=== PATIENT | male | born 1975 | race Caucasian/White ===

== ENCOUNTER 2021-01-22 11:03 | Emergency (ER) | payer BC, SELFPAY ==
--- NOTE | ~2021-01-22 | XR_ITS ---
EXAMINATION: XR KNEE, LEFT CLINICAL INFORMATION: Pain following fall. COMPARISON: None TECHNIQUE: Four views of the left knee. FINDINGS: No acute fracture or dislocation. No significant joint space narrowing or marginal osteophytes. No osseous erosion. No abnormal soft tissue calcification. No significant joint effusion. XR/XR knee LT 2V IMPRESSION: Unremarkable examination.
--- NOTE | ~2021-01-22 | US_ITS ---
EXAMINATION: US VENOUS ULTRASOUND WITH DOPPLER LOWER EXTREMITY, LEFT CLINICAL INFORMATION: Left leg pain. Evaluate for deep vein thrombosis. COMPARISON: None TECHNIQUE: Ultrasound of the deep veins is performed from the hip to the calf with compression sonography and color and pulse Doppler assessment. Spectral analysis with color-flow imaging is performed. FINDINGS: There is normal venous compression and respiratory variation and augmented flow. The visualized common femoral vein, superficial femoral vein, profunda femoral vein, popliteal vein, and the trifurcation region shows no evidence of deep venous thrombosis. There is no significant popliteal fossa cyst. If the patient's symptoms persist, followup ultrasound in 5 days 7 days might be of value to exclude proximal propagation from a non-visualized calf vein. US/US venous duplex LE LT IMPRESSION: No DVT demonstrated in the left lower extremity.
[2021-01-22 11:21] VITALS: BP 145/96; PULSE 79; RESP 18; TEMP 36.8; O2SAT 98; BMI 47.4
--- NOTE | 2021-01-22 14:03 | ED.GENADULT ---
HPI - General Adult General Chief complaint: General Medical Stated complaint: leg swelling Time Seen by Provider: 01/22/21 12:32 Source: patient History of Present Illness HPI narrative: This is a 45 year old male who complains of pain to his left medial leg and prominence of the vein from the medial knee down to the medial ankle. The patient has noticed this for about a week. He has had some pain to that area but denies any generalized calf pain. Denies any chest pain or shortness of breath. Patient notes that he has had some pain in both of his knees as well off and on and has had prior surgery on his right knee. He had a fall yesterday at work and has some pain to his left inferior knee after this fall. He notes that he is overweight and attributes his knee problems to being overweight. Related Data Allergies Allergy/AdvReac Type Severity Reaction Status Date / Time No Known Allergies Allergy Verified 01/22/21 11:21 [No Known Allergies*] Review of Systems Constitutional: Constitutional: Reports as per HPI Cardiovascular: Cardiovascular: Reports no additional cardiovascular complaints, Denies chest pain and Denies dyspnea Respiratory: Respiratory: Denies dyspnea Gastrointestinal: Gastrointestinal: Reports no additional gastrointestinal complaints Neurologic: Denies Sensory deficit (Neuro) [facility] Past Medical History Medical History (Updated 01/22/21 @ 14:13 by Bennett Hawk MD) Arthritis Lower extremity surgery planned Obesity Social History Social History Alcohol intake: current Alcohol intake frequency: 3 or more drinks per day Patient Tobacco Use Status: Current everyday Tobacco user Use of substances other than those prescribed or required for medical reasons: Yes Substance Use Type: Marijuana Substance Use Frequency: Daily Advance Directives: Yes Advance Directives Information Provided: Yes Advance Directives on File: No Physical Exam Vital Signs: Vital Signs: Last Vital Signs Temp 98.2 F 01/22/21 11:21 Pulse 79 01/22/21 11:21 Resp 18 01/22/21 11:21 BP 145/96 H 01/22/21 11:21 Pulse Ox 98 01/22/21 11:21 Body Mass Index 47.4 Const: General: cooperative, no acute distress and alert Orientation/consciousness: patient oriented x3 HENMT: Head: Yes normal to inspection Eyes: General: appearance normal, both eyes and all related structures Eyelids: Yes eyelids normal Conjunctivae: conjunctivae normal Pupils: Equal, round and reactive pupils present Neck: Neck: Yes normal visual inspection and Yes supple Chest: Chest palpation & inspection: normal inspection of the chest Resp: Effort & Inspection: normal respiratory effort Auscultation: clear to auscultation bilaterally Cardio: Rate: regular rate Rhythm: regular rhythm Heart sounds: S1 normal heart sound present, S2 normal heart sound present, no gallops, no murmurs and no rubs GI: Palpation (GI): Soft to palpation, nontender and Other GI palpation findings present (Non-distended) Auscultation: normal bowel sounds Skin: General skin exam: no rashes or lesions noted Neuro: General: patient oriented x3, no focal motor deficits and CN's II-XI intact bilaterally Cranial nerves: Yes Equal, round and reactive pupils present Cognition (Neuro): normal cognition Motor exam (neuro): 5/5 motor strength present throughout Sensory Exam: No Sensory deficit (Neuro) Extrem: Other: Left leg with no calf tenderness. Slight prominence to a few external veins but no erythema. Borderline mild pedal edema. Left knee with tenderness to the inferior aspect, no effusion or ecchymosis General: Yes normal to inspection and Yes no pedal edema Psych: Appearance: grossly normal Affect: normal affect Medical Decision Making MDM Narrative Medical decision making narrative: Patient with chronic knee pain, had a fall yesterday and complained of worsened knee pain. Examination benign. X-ray negative. Patient also complained of prominence to the veins of his left leg for about a week with pain along the medial aspect of the leg mild pedal edema. Exam not impressive but felt a worthwhile to rule out DVT. Ultrasound was negative. Imaging Data Left leg ultrasound venous: Radiologist's impression: IMPRESSION: No DVT demonstrated in the left lower extremity. Discharge Plan Discharge Clinical Impression: Acute pain of left knee, Varicose veins of left lower extremity Patient Disposition: Home, Self-Care Instructions: Knee Pain (ED) Additional Instructions: Use ibuprofen for pain. Follow-up with your orthopedic doctor she have persistent pain in your knee or knees. Return for any new or worsened symptoms such as increased leg pain or swelling
[2021-01-22 14:33] VITALS: BP 136/96; PULSE 77; RESP 16; O2SAT 96
== END 2021-01-22 14:40 | disposition home or self-care (01) ==
PROVIDERS: Emergency Provider Emergency Medicine
DX: I83.892 Varicose veins of left lower extremity with other complications (principal); M25.562 Pain in left knee; R22.42 Localized swelling, mass and lump, left lower limb; E66.9 Obesity, unspecified; F17.210 Nicotine dependence, cigarettes, uncomplicated; F12.90 Cannabis use, unspecified, uncomplicated
CPT/HCPCS: 73560; 93971; 99284

== ENCOUNTER 2021-09-29 11:13 | Emergency (ER) | payer OTHER, SELFPAY ==
--- NOTE | ~2021-09-29 | XR_ITS ---
EXAMINATION: XR CHEST CLINICAL INFORMATION: Rule out pneumonia COMPARISON: None TECHNIQUE: Frontal view of the chest was obtained. FINDINGS: Cardiac silhouette is normal in size. The lungs are well aerated. There is no lobar consolidation. No pleural effusion or pneumothorax. No gross osseous abnormality. XR/XR chest 1V IMPRESSION: No acute pulmonary pathology.
[2021-09-29 11:43] VITALS: BP 122/78; PULSE 86; RESP 19; TEMP 36.8; O2SAT 96; BMI 48.6
--- NOTE | 2021-09-29 12:06 | ED_ITS ---
HPI - URI/Sore Throat General Chief Complaint: Upper Respiratory Symptoms Stated Complaint: sinsus headache cough Time Seen by Provider: 09/29/21 11:58 Source: patient Mode of arrival: ambulatory Limitations: no limitations History of Present Illness HPI Narrative: Patient comes to the emergency room complaining of cough, congestion, sinus pressure for about 3 days now. Patient states that his daughter had similar symptoms. Patient denies fever, however he has been taking Tylenol and ibuprofen around the clock. Patient states that he found old albuterol comes from a family member and he has been treating himself with albuterol and ?some steroid? Related Data Previous Rx's Medication Instructions Recorded fexofenadine 180 mg tablet 180 mg PO DAILY #7 tab 09/29/21 ([facility]) fluticasone propionate 50 2 spray INTRANASAL DAILY #16 g 09/29/21 mcg/actuation nasal spray,suspension (24 Hour Allergy Relief) Allergies Allergy/AdvReac Type Severity Reaction Status Date / Time No Known Allergies Allergy Verified 09/29/21 11:43 [No Known Allergies*] Review of Systems Review of Systems: Constitutional : No Weight loss, No Fever, No Chills, No Night Sweats, No Fatigue, No Malaise ENT/Mouth : No Hearing loss, No Ear Pain, complaining of nasal congestion, sinus pain Eyes: No Eye Pain, No Swelling, No Redness, No Foreign Body, No Discharge, No Vision Changes Cardiovascular : No Chest Pain, No SOB, No Dyspnea on Exertion, No Orthopnea, No Edema, No Palpitations Respiratory : Complaining of productive cough, No Wheezing, No Smoke Exposure, No Dyspnea Gastrointestinal : No Nausea, No Vomiting, No Diarrhea, No Constipation, No abdominal Pain, No Hematochezia, No Melena Genitourinary : no irregular bleeding, No Dysuria, No Urinary Frequency, No Hematuria, No Urinary Incontinence, No Urgency, No Flank Pain, No Urinary Flow Changes, No Hesitancy Musculoskeletal : No joint pain, No Myalgias, No Joint Swelling Skin : No Skin Lesions, No rash Neuro : No Weakness, No Numbness, No Paresthesias, No Loss of Consciousness, No Dizziness, No Headache Psych : No Anxiety/Panic, No Depression, No SI/HI/AH/VH, No Social Issues, Heme/Lymph: No Bruising, No Bleeding,No Lymphadenopathy Endocrine : No Polyuria, No Polydipsia, No Temperature Intolerance [facility] Past Medical History Medical History Arthritis Lower extremity surgery planned Obesity Social History Social History Alcohol intake: current Alcohol intake frequency: 3 or more drinks per day Patient Tobacco Use Status: Current everyday Tobacco user Substance Use Type: Marijuana Advance Directives: No Advance Directives Information Provided: No Physical Exam Vital Signs: Vital Signs: Last Vital Signs Temp 98.2 F 09/29/21 11:43 Pulse 86 09/29/21 11:43 Resp 19 09/29/21 11:43 BP 122/78 09/29/21 11:43 Pulse Ox 96 09/29/21 11:43 BMI result Body Mass Index 48.6 Const: Other: Appearance: Alert. Oriented X3. No acute distress. Eyes: Pupils equal, round and reactive to light. ENT: Pharynx normal. Neck: Normal inspection. Neck supple. No lymph nodes noted. No crepitus CVS: Normal heart rate and rhythm. Pulses normal. Normal S1 and S2 Respiratory: No respiratory distress. Bilateral rales, no wheezing, no crackles, pain to palpation over the frontal and maxillary sinus Abdomen: Soft and nontender. No rigidity. No distention. Skin: Skin warm and dry. Normal skin color. Normal skin turgor. Extremities: No lower extremity edema. No Lacerations. No Rash Neuro: Oriented X 3. No motor deficit. No sensory deficit. Moving all extremities. No slurred speech. CN 2 through 12 grossly intact Psych: calm, cooperative, normal affect Course Course Course Narrative: COVID/flu test and chest x-rays pending COVID and flu test negative. Chest x-ray negative Patient likely having viral bronchitis MDM - URI/Sore Throat Lab Data Labs: Lab Results 09/29/21 09/29/21 Range/Units 12:36 12:36 COVID-19 (ALEXIS) Negative (Negative) COVID-19 Clin Com See Note Influenza Type A (CARISA) Negative (Negative) Influenza Type B (CARISA) Negative (Negative) Influenza A & B Note See Note Discharge Plan Discharge Clinical Impression: Acute bronchitis, viral Patient Disposition: Home, Self-Care Instructions: Acute Bronchitis (ED) Additional Instructions: Please follow-up with your primary care physician tomorrow. If you have any worsening or new symptoms, please return to the emergency room or call 911 Prescriptions: New fluticasone propionate [24 Hour Allergy Relief] 50 mcg/actuation spray,suspension 2 spray intranasal DAILY Qty: 16 0RF Rx Instructions: administer into each nostril fexofenadine [[facility]] 180 mg tablet 180 mg PO DAILY Qty: 7 0RF
[2021-09-29 13:09] LABS: IDNOW Serial# 16C4AD1C; Influenza A Negative (Negative); Influenza B2 Negative (Negative)
[2021-09-29 13:20] LABS: COVID-19 Test Negative (Negative)
== END 2021-09-29 15:19 | disposition home or self-care (01) ==
PROVIDERS: Emergency Provider Emergency Medicine
DX: J20.8 Acute bronchitis due to other specified organisms (principal); R51.9 Headache, unspecified; R05.9 Cough, unspecified; F17.200 Nicotine dependence, unspecified, uncomplicated; Z71.6 Tobacco abuse counseling; F12.90 Cannabis use, unspecified, uncomplicated; Z79.899 Other long term (current) drug therapy; Z20.822 Contact with and (suspected) exposure to COVID-19
CPT/HCPCS: 71045; 87502; 87635; 99283